=== PATIENT | male | born 1990 | race Hispanic/Latino ===

== ENCOUNTER 2018-12-27 21:12 | Emergency (ER) | payer SELFPAY ==
[2018-12-27] MEDS ORDERED: Cyclobenzaprine 10 MG TAB ONE (21:40)
[2018-12-27] MEDS ORDERED: Ketorolac Tromethamine 30 MG/ML VIAL ONE (21:40)
[2018-12-27] MEDS ORDERED: Lorazepam 2 MG/ML VIAL ONE (21:41)
[2018-12-27 21:52] LABS: Hemoglobin 21.4 g/dL (14.0-18.0); Mean Corpuscular HGB CONC 32.9 g/dL (32.0-36.0); Mean Corpuscular Hemoglobin 30.2 pg (27.0-31.0); Mean Corpuscular Volume 91.6 fL (78.0-98.0); Mean Platelet Volume 14.8 fL (7.4-10.4); Platelet Count 287 thou/uL (130-400); RBC Distribution Width 11.8 % (11.5-14.5); Red Blood Cell (RBC) Count Greater than 7.09 mill/uL (4.70-6.10); White Blood Cell (WBC) Count 25.2 thou/uL (4.8-10.8)
[2018-12-27 21:59] LABS: ALT (SGPT) 37 U/L (8-55); AST (SGOT) 49 U/L (5-34); Alkaline Phosphatase 92 U/L (40-150); Anion Gap 36 mmol/L (10-20); BUN (Urea Nitrogen) 36 mg/dL (8.9-20.6); Bilirubin, Total 1.4 mg/dL (0.2-1.2); CK (CPK) 285 U/L (30-200); Calc. Creatinine Clearance 0 mL/min (70-130); Carbon Dioxide 16 mmol/L (22-29); Chloride 95 mmol/L (98-107); Estimated GFR-MDRD 15; Glucose 229 mg/dL (70-105); Lipase 86 U/L (8-78); Potassium 4.1 mmol/L (3.5-5.1); Protein, Total 11.9 g/dL (6.0-8.3); Sodium 143 mmol/L (136-145)
[2018-12-27 22:04] LABS: Band 1 % (5-11); Lymphocytes 10 % (21-51); MDiff Complete? YES; Monocytes 11 % (0-10); Neutrophil 77 % (42-75); Platelet Morphology Comment Appears Adequate; RBC Morphology Normal; Reactive Lymphocytes 1 % (0-10)
[2018-12-27 22:05] LABS: Albumin Greater than 6.2 g/dL (3.5-5.0); Calcium 13.4 mg/dL (7.8-10.44); Globulin 5.7 g/dL (2.4-3.5)
== END 2018-12-27 23:00 | disposition short-term general hospital (02) ==
LOC: BURERS 21:12
DX: N28.9 Disorder of kidney and ureter, unspecified (principal); E86.0 Dehydration; M62.830 Muscle spasm of back
CPT/HCPCS: 80053; 82550; 83690; 85025; 96374; 96375; J1885; J2060